=== PATIENT | female | born 1985 | race Caucasian/White ===

== ENCOUNTER 2020-03-16 16:36 | Inpatient (IN) ==
[2020-03-16] MEDS ORDERED: LACTATED RINGER'S 1,000 ML IV PRN (17:15)
[2020-03-16] MEDS ORDERED: OXYTOCIN 30 UNITS/500 ML BAG IV PRN ×3 (17:15→19:55)
[2020-03-16] MEDS ORDERED: ePHEDrine sulfate 50 MG/ML AMP ONE (17:27)
[2020-03-16] MEDS ORDERED: BUPIVACAINE 0.25% 30 ML VIAL ONE (17:28)
[2020-03-16] MEDS ORDERED: fentaNYL citrate 100 MCG/2 ML VIAL ONE (17:28)
[2020-03-16] MEDS ORDERED: fentaNYL 2MCG/ML ROPIV 1.25MG/ML 100 ML BAG EPI ONE (17:28)
--- NOTE | 2020-03-16 17:29 | History & Physical Report ---
Date of Service March 16, 2020 Assessment & Plan (1) Desires (vaginal after ) trial: -Tracing category 2 with accelerations and variability -Patient will require stress dosing of steroids -Plan recommendation is hydrocortisone 100 mg IV during labor, then 50 mg q. 8 hours x 3 doses -COVID-19 screening for active labor -Patient requesting epidural -Anticipate vaginal delivery History of Present Illness Chief Complaint: Labor check Primary Care Provider: Blu Milligan MD The patient is a 35-year-old 3 para 2, with an EDC of 14 March by first trimester ultrasound, who was admitted at 40+ weeks gestational age in active labor. Patient states contractions began in intensity at 0100 hrs. on day of admission. Patient denies rupture of membranes or vaginal bleeding. The patient's first was a vaginal delivery. Her second was a primary section for malposition. The patient has been counseled on the risks and benefits of a vaginal delivery after section and would like to try for a . The patient carries a diagnosis of adrenal insufficiency. This was after a transsphenoidal resection of a pituitary adenoma. Patient is maintained on chronic steroid therapy. Patient has had a consult during this with maternal- medicine in [place]. Their recommendations for stress dose steroids has been received. The patient also has a history of hypothyroidism but has been using thyroid throughout the . Laboratory values for the show a blood type of O+, antibody negative, rubella immune, hepatitis B negative, negative cystic fibrosis and SMA screening, she declined cell free DNA screening and quad screen, normal 1 hour Glucola x2, and a negative third trimester beta strep culture. Allergies Allergy/AdvReac Type Severity Reaction Status Date / Time acetaminophen Allergy Intermediate lips swell Verified 03/15/20 14:42 gluten Allergy Unknown Gastrointestinal Verified 03/15/20 14:42 Upset Home Medications Home Medications Medication Instructions Recorded Confirmed Type docosahexanoic acid 1 ea PO BID 12/01/19 03/15/20 History levothyroxine 75 mcg capsule 75 - 150 mcg PO QAM 12/01/19 03/16/20 History hydrocortisone 10 mg tablet 15 mg PO QAM tab 12/24/19 03/16/20 History hydrocortisone 5 mg tablet 10 mg PO QPM tab 12/24/19 03/16/20 History vit-iron fum-folic ac 1 tab PO DAILY 03/16/20 03/16/20 History [ Vitamin] Patient History Medical History (Updated 03/16/20 @ 17:15 by Dez Good Jr, MD, FACOG) 40 weeks gestation of Adrenal insufficiency Asthma Cardiac murmur heard by PCP 15 years ago- had unremarkable workup (?echo)- has not been hear d since Exposure to 2019-nCoV Gestational diabetes insipidus follow with Dr. 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, then had adrenal insufficiency after, takes replacement Varicella (Resolved) Surgical History (Updated 03/16/20 @ 17:15 by Dez Good Jr, MD, FACOG) delivery delivered History of delivery Nausea and vomiting after administration of anesthetic agent SLOW TO WAKE UP WITH 4-5 HR PITUITARY SURGERY/PONV S/P transsphenoidal hypophysectomy (Inactive) Social History (Updated 07/22/19 @ 10:01 by Jen Yeung) Preferred Language: Arabic Communication Ability: Effective 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 Beliefs That Will Affect Care: None marital status: marital status details: Kadeem Smallwood (34) [phone] Current Living Situation: Family Current Living Situation Comment: Lives with spouse, children and 1 dog current occupational status: unemployed current occupation: Homemaker Other Information That Helps Us Care for You: No Feels Safe at Home: Yes Safety Concerns: Feels Safe At This Time Smoking Status: Never smoker Do You Dip or Chew Tobacco: No ; Second Hand Exposure: No ; Tobacco Cessation Education Requested by Patient: No Hx Alcohol Use: No Hx Substance Use: No Physical Exam Constitutional: WD/WN, vitals as above Respiratory: Auscultation: lungs clear to auscultation bilaterally Cardiovascular: RRR, no murmur, no edema Extremities: no calf tenderness Gastrointestinal (Abdomen): Gravid, vertex, positive heart tones, estimated weight of 7 and half pounds Genitourinary: Cervix: 7/100/0 Results & Data ([facility]) Vital Signs (Past 12 Hours) Vital Signs Temp Pulse Resp BP 03/16/20 17:11 98.4 F 108 H 20 118/68 03/16/20 16:46 98.4 F 108 H 20 118/68 Coding Level of Care Code None Diagnoses Desires (vaginal after ) trial O34.219
[2020-03-16] MEDS ORDERED: HYDROCORTISONE SOD 100 MG in SYRINGE 0 ML IV ONE (17:30)
[2020-03-16 17:44] LABS: Hematocrit (blood only) 41.1 % (37-47); Hemoglobin 13.9 g/dL (12.0-16.0); Mean Corpuscular Hemoglobin 30.2 pg (25-34); Mean Corpuscular Volume 89.3 fL (80-100); Mean Platelet Volume 10.2 fL (7.4-10.4); Platelet Count 189 K/uL (130-400); RDW Coefficient of Variation 14.5 % (11.5-14.5); RDW Standard Deviation 47.2 fL (36.4-46.3); White Blood Count 8.18 K/uL (4.8-10.8)
[2020-03-16 18:23] LABS: Mean Corpuscular Hgb Conc 33.8 g/dL (32-36)
--- NOTE | 2020-03-16 18:31 | Anesthesiology Consultation ---
Date of Service March 16, 2020 Assessment & Plan Chart Review Chart Review: Acceptable Risk for Labor Epidural Consults Requested none History Height/Weight Height: 5 ft 6 in Weight: 72.915 kg Allergies Allergy/AdvReac Type Severity Reaction Status Date / Time acetaminophen Allergy Intermediate lips swell Verified 03/15/20 14:42 gluten Allergy Unknown Gastrointestinal Verified 03/15/20 14:42 Upset Medications Home Medications Medication Instructions Recorded Confirmed Last Taken docosahexanoic acid 1 ea PO BID 12/01/19 03/15/20 1 Week Ago ~03/08/20 levothyroxine 75 mcg capsule 75 - 150 mcg PO QAM 12/01/19 03/16/20 03/16/20 07:00 hydrocortisone 10 mg tablet 15 mg PO QAM tab 12/24/19 03/16/20 03/16/20 12:00 hydrocortisone 5 mg tablet 10 mg PO QPM tab 12/24/19 03/16/20 03/16/20 15:00 vit-iron fum-folic ac 1 tab PO DAILY 03/16/20 03/16/20 03/16/20 12:00 [ Vitamin] Active Medications Generic Name Dose Route Start Last Admin Trade Name Freq PRN Reason Stop Dose Admin Lactated Ringer's 1,000 mls @ 125 mls/hr 03/16/20 17:15 03/16/20 18:30 Lr IV 03/18/20 17:14 125 mls/hr .Q8H PRN Infusion L&D Protocol Protocol Past Medical History Medical History 40 weeks gestation of Adrenal insufficiency Asthma Cardiac murmur heard by PCP 15 years ago- had unremarkable workup (?echo)- has not been he paco since Exposure to 2019-nCoV Gestational diabetes insipidus follow with Dr. 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 Grandmother (Maternal) Breast cancer Grandmother (Maternal) Colorectal cancer Mat Great GM had colon cancer, Mat GM had precancerous polyps removed. Mom has had neither, and gets regular screening. Past Surgical History Surgical History delivery delivered History of delivery Nausea and vomiting after administration of anesthetic agent SLOW TO WAKE UP WITH 4-5 HR PITUITARY SURGERY/PONV S/P transsphenoidal hypophysectomy (Inactive) Social History Smoking Status: Never smoker Do You Dip or Chew Tobacco: No Hx Alcohol Use: No Hx Substance Use: No Physical Exam Vital Signs Last Vital Signs Temp 36.9 C 03/16/20 17:11 Pulse 82 03/16/20 18:28 Resp 20 03/16/20 17:11 BP 109/58 L 03/16/20 18:28 Pulse Ox 98 03/16/20 18:25 Testing Laboratory Results 03/16/20 17:29
[2020-03-16] MEDS ORDERED: fentaNYL 2MCG/ML ROPIV 1.25MG/ML 100 ML BAG EPI PRN (18:33)
[2020-03-16] MEDS ORDERED: NALOXONE HCL 0.4 MG/1 ML VIAL/CARP IV PRN (18:33)
[2020-03-16] MEDS ORDERED: DiphenhydrAMINE HCL 50 MG/ML VIAL IV PRN (18:33)
[2020-03-16] MEDS ORDERED: ePHEDrine sulfate 50 MG/ML AMP IV PRN (18:33)
[2020-03-16] MEDS ORDERED: NALOXONE HCL 1 MG in SODIUM CHLORIDE 0.9% 1000ML 1,000 ML IV PRN (18:33)
--- NOTE | 2020-03-16 18:59 | Labor Progress Brief Note ---
Date of Service March 16, 2020 Subjective Reason For Note: Routine Evaluation feel pressure Assessment & Plan (1) Desires (vaginal after ) trial: - tracing Cat II - begin 2nd stage Admission and Anticipated Discharge Date Admission Date: March 16, 2020 Physical Exam Genitourinary: Cervix: complete/OA/(+)1 Results & Data ([facility]) Vital Signs (Past 12 Hours) Vital Signs Temp Pulse Resp BP Pulse Ox 03/16/20 18:58 106 H 136/79 03/16/20 18:55 108 H 99 03/16/20 18:50 91 H 98 03/16/20 18:45 87 96 03/16/20 18:40 98.2 F 79 20 106/63 96 03/16/20 18:38 78 112/62 03/16/20 18:36 98 H 109/63 03/16/20 18:35 92 H 97 03/16/20 18:34 86 110/61 03/16/20 18:32 80 100/60 03/16/20 18:30 84 110/62 98 03/16/20 18:28 82 109/58 L 03/16/20 18:26 90 109/67 03/16/20 18:25 83 98 03/16/20 18:24 85 106/59 L 03/16/20 18:22 84 104/55 L 03/16/20 18:20 81 111/61 03/16/20 18:19 83 98 03/16/20 18:17 83 110/63 03/16/20 18:14 99 H 98 03/16/20 18:09 97 H 98 03/16/20 17:11 98.4 F 108 H 20 118/68 03/16/20 16:46 98.4 F 108 H 20 118/68 Coding Level of Care Code None Diagnoses Desires (vaginal after ) trial O34.219
--- NOTE | 2020-03-16 19:48 | Delivery Summary ---
Vaginal Delivery Summary Date of Service March 16, 2020 Vaginal Delivery Summary Findings: Viable female infant with Apgars of 8 and 9. Baby delivered over a midline second-degree laceration. Placenta cord gases cord blood samples obtained. Placenta delivered spontaneously. Laceration repaired with 4-0 Vicryl in a routine fashion. Estimated blood loss 300 cc. Labor note: The patient is a 35-year-old 3 para 2, with an EDC of 14 March by first trimester ultrasound, who was admitted at 40+ weeks gestational age in active labor. Patient states contractions began in intensity at 0100 hrs. on day of admission. Patient denies rupture of membranes or vaginal bleeding. The patient's first was a vaginal delivery. Her second was a primary section for malposition. The patient has been counseled on the risks and benefits of a vaginal delivery after section and would like to try for a . The patient carries a diagnosis of adrenal insufficiency. This was after a transsphenoidal resection of a pituitary adenoma. Patient is maintained on chronic steroid therapy. Patient has had a consult during this with maternal- medicine in [place]. Their recommendations for stress dose steroids has been received. The patient also has a history of hypothyroidism but has been using thyroid throughout the . Laboratory values for the show a blood type of O+, antibody negative, rubella immune, hepatitis B negative, negative cystic fibrosis and SMA screening, she declined cell free DNA screening and quad screen, normal 1 hour Glucola x2, and a negative third trimester beta strep culture. Upon admission the patient was 7 cm dilated and in active labor. Tracing was category 2. Patient received a stress dose of hydrocortisone IV 100 mg per plan. Anesthesia was consulted and an epidural was placed. During placement of the epidural the patient had spontaneous rupture of membranes. After placement of the epidural the patient was fully dilated and began her second stage. She pushed for approximately 15 minutes delivering the viable female infant. Cord was clamped and cut. Cord gases and cord blood samples were obtained. Placenta was delivered spontaneously. Inspection of the perineum showed a midline second-degree laceration. This was repaired with 4-0 Vicryl. Estimated blood loss 300 cc. Sponge and needle count was correct. [facility] Vaginal Delivery Charge Vaginal Delivery Codes: 76605 global code for the antepartum, delivery, and post-
[2020-03-16 19:53] LABS: Base Excess Cord Arterial Bld -5.2 mEq/L (-9-1.8); CO2 Cord Arterial Blood 63 mmHg (39.1-73.5); HCO3 Cord Arterial Blood 24 mmol/L (19.7-28.5); PO2 Cord Arterial Blood 20 mmHg (4.1-31.7)
[2020-03-16] MEDS ORDERED: BENZOCAINE 20% AER SPR 82.5 GM CAN EXT PRN (19:55)
[2020-03-16] MEDS ORDERED: SUPERCREAM 0.870% 15 GM JAR EXT PRN (19:55)
[2020-03-16] MEDS ORDERED: HYDROCORTISONE ACETATE 25 MG SUPP PR PRN (19:55)
[2020-03-16] MEDS ORDERED: DIPHTHERIA/TETANUS/PERTUSSIS 0.5 ML SYR/VIAL IM ONE (19:55)
[2020-03-16 19:58] LABS: Base Excess Cord Venous Blood -2.2 mEq/L (-7.7-1.9); Cord Venous Blood HCO3 23 mmol/L (18.4-26.8); Cord Venous Blood PCO2 41 mmHg (30.4-57.2); Cord Venous Blood PO2 30 mmHg (14.1-43.3); Cord Venous Blood pH 7.37 (7.20-7.44)
[2020-03-16 20:00] LABS: Oxygen Sat Cord Arterial Blood < 60.0 % (<60)
--- NOTE | 2020-03-16 20:28 | Anesthesiology Progress Note ---
Date of Service March 16, 2020 Anesthesia Post Procedure Vital Signs Vital Signs: Temp Pulse Resp BP Pulse Ox 03/16/20 20:27 79 112/64 03/16/20 20:12 75 110/69 03/16/20 20:05 18 03/16/20 19:57 76 122/60 03/16/20 19:50 18 03/16/20 19:42 79 118/55 L 03/16/20 19:35 18 03/16/20 19:27 81 122/55 L 03/16/20 19:22 36.8 C 18 03/16/20 19:20 148 H 100 03/16/20 19:15 101 H 99 03/16/20 19:12 96 H 140/62 03/16/20 19:10 89 100 03/16/20 19:05 94 H 99 03/16/20 19:00 36.8 C 102 H 18 99 03/16/20 18:58 106 H 136/79 03/16/20 18:55 108 H 99 03/16/20 18:50 91 H 98 03/16/20 18:45 87 96 03/16/20 18:40 36.8 C 79 20 106/63 96 03/16/20 18:38 78 112/62 03/16/20 18:36 98 H 109/63 03/16/20 18:35 92 H 97 03/16/20 18:34 86 110/61 03/16/20 18:32 80 100/60 03/16/20 18:30 84 110/62 98 03/16/20 18:28 82 109/58 L 03/16/20 18:26 90 109/67 03/16/20 18:25 83 98 03/16/20 18:24 85 106/59 L 03/16/20 18:22 84 104/55 L 03/16/20 18:20 81 111/61 03/16/20 18:19 83 98 03/16/20 18:17 83 110/63 03/16/20 18:14 99 H 98 03/16/20 18:09 97 H 98 03/16/20 17:11 36.9 C 108 H 20 118/68 03/16/20 16:46 36.9 C 108 H 20 118/68 Pain Intensity Abdomen: Pain Intensity: 0 Transfer of Care Handoff Completed per policy Notes Mental Status: alert / awake / arousable and participated in evaluation Patient Amnestic to Procedure: Yes Nausea / Vomiting: adequately controlled Pain: adequately controlled Airway Patency, RR, SpO2: stable & adequate BP & HR: stable & adequate Hydration State: stable & adequate Anesthetic Complications: no major complications apparent
--- NOTE | 2020-03-16 20:29 | Anesthesia Procedure Note ---
Date of Service March 16, 2020 Anesthesia Post Epidural Note Vital Signs Vital Signs: Temp Pulse Resp BP Pulse Ox 36.8 C 79 18 112/64 100 03/16/20 19:22 03/16/20 20:27 03/16/20 20:05 03/16/20 20:27 03/16/20 19:20 Pain Intensity Abdomen: Pain Intensity: 0 Notes Mental Status: alert / awake / arousable Nausea / Vomiting: adequately controlled Pain: adequately controlled Airway Patency, RR, SpO2: stable & adequate BP & HR: stable & adequate Hydration State: stable & adequate Neuraxial Anesthesia: was administered and sensory block is resolving Anesthetic Complications: no major complications apparent and Pt Satisfied with anesthetic care Epidural: Removed without complications and With tip intact
[2020-03-16] MEDS: DOCUSATE SODIUM 100 MG CAP PO SCH (21:19)
[2020-03-16] MEDS: IBUPROFEN 600 MG TAB PO PRN (21:59)
[2020-03-17] MEDS: HYDROCORTISONE SOD 50 MG in SYRINGE 0 ML IV SCH ×3 (01:39→18:13)
[2020-03-17] MEDS ORDERED: LEVOTHYROXINE SODIUM 75 MCG TABLET PO SCH (06:30)
--- NOTE | 2020-03-17 07:21 | Obstetrical Progress Note ---
Date of Service March 17, 2020 Assessment & Plan (1) Desires (vaginal after ) trial: - doing well - desires d/c - instructions given - f/u in 6 weeks Subjective Ambulation: ambulating normally Voiding: no voiding problems Feeding Type:: breast feeding Physical Exam Constitutional WD/WN, vitals as above Gastrointestinal (Abdomen) Fundus firm below umbilicus Musculoskeletal No deep calf tenderness Results & Data ([facility]) Vital Signs (Past 12 Hours) Vital Signs Temp Pulse Pulse Resp BP BP Pulse Ox 03/17/20 03:20 97.7 F 69 14 107/67 97 03/16/20 22:40 98.1 F 81 16 112/69 94 03/16/20 22:20 18 03/16/20 21:35 18 03/16/20 21:05 18 03/16/20 20:46 80 124/68 03/16/20 20:35 18 03/16/20 20:27 79 112/64 03/16/20 20:20 98.2 F 18 03/16/20 20:12 75 110/69 03/16/20 20:05 18 03/16/20 19:57 76 122/60 03/16/20 19:50 18 03/16/20 19:42 79 118/55 L 03/16/20 19:35 18 03/16/20 19:27 81 122/55 L 03/16/20 19:22 98.2 F 18
[2020-03-17] MEDS ORDERED: PRENATAL VITAMIN 1 TAB PO SCH (08:00)
[2020-03-17] MEDS ORDERED: FERROUS SULFATE 325 MG TAB PO SCH (08:00)
[2020-03-17] MEDS: IBUPROFEN 600 MG TAB PO PRN ×3 (08:26→18:13)
[2020-03-17] MEDS: DOCUSATE SODIUM 100 MG CAP PO SCH (08:26)
[2020-03-17] MEDS ORDERED: bisacodyL 5 MG TABEC PO SCH (20:00)
[2020-03-17] MEDS ORDERED: HYDROCORTISONE 10 MG TAB PO SCH (21:00)
[2020-03-18] MEDS ORDERED: HYDROCORTISONE 10 MG TAB PO SCH (09:00)
== END 2020-03-17 21:20 | disposition home or self-care (01) | DRG 806 ==
LOC: OPB 16:36 → 4S1 16:37 → 4S2 22:34